=== PATIENT | female | born 1930 | race Caucasian/White ===

== ENCOUNTER 2021-07-01 13:46 | Inpatient (IN) | payer MEDICARE, BC ==
[~2021-07-01] VITALS: Ht 152.4 cm; Wt 50.0 kg
[2021-07-01] VITALS (30 sets, daily range): BP systolic 83–149; BP diastolic 38–90
[2021-07-01 14:24] LABS: HEMATOCRIT 32.1 % (37.0-47.0); IMMATURE GRANULOCYTES 0.8 % (0.0-5.0); MEAN CELL VOLUME 99.4 fL CALC (80.0-100.0); MEAN CORPUSCULAR HGB CONC 31.2 g/dL CAL (32.0-36.0); NEUT# 2.86 thou/uL (2.00-7.15); RED BLOOD COUNT 3.23 mill/uL (4.20-5.60); RED CELL DISTRI WIDTH 13.8 % (11.5-15.5)
[2021-07-01 14:41] LABS: PROTHROMBIN TIME 10.4 SECONDS (9.0-12.5)
[2021-07-01 14:42] LABS: ALBUMIN 3.7 g/dL (3.2-5.0); ALKALINE PHOSPHATASE 40 u/l (38-126); ANION GAP 11 (6-22 (CALC)); BILIRUBIN, TOTAL 0.5 mg/dL (0.0-1.4); BUN 18 mg/dL (8-23); BUN/CREATININE RATIO 16 (12-20 (CALC)); CARBON DIOXIDE 25 mmol/l (22-30); CHLORIDE 105 mmol/l (95-108); CREATININE 1.1 mg/dL (0.5-1.0); GFR 47 ML/MIN (>=60 (CALC)); GFR FOR AFR.AMER. 57 ML/MIN (>=60 (CALC)); POTASSIUM 4.3 mmol/l (3.5-5.1); SGOT/AST 31 u/l (9-36); SODIUM 136 mmol/l (137-146)
[2021-07-01] MEDS ORDERED: MULTI VIT PO (15:29)
[2021-07-01] MEDS ORDERED: ACETAMINOPHEN500 M1 PO (15:31)
[2021-07-01] MEDS ORDERED: LIDOCAINE PATCH 55 % (15:31)
[2021-07-01] MEDS ORDERED: [UNRECOGNIZED DRUG - OTHER] PO (15:32)
[2021-07-01] MEDS ORDERED: CALCIUM PO (15:32)
[2021-07-01] MEDS ORDERED: MELATONIN10 MG PO (15:32)
[2021-07-01] MEDS ORDERED: PREDNISONE5 MG PO (15:33)
[2021-07-01] MEDS ORDERED: VITAMIN D3400 UNI1 PO (15:33)
[2021-07-01] MEDS ORDERED: CITALOPRAM20 M1 PO (15:33)
[2021-07-01] MEDS ORDERED: METHOCARBAMOL500 MG PO (15:34)
[2021-07-01] MEDS ORDERED: FLONASE AL50 MCG/ACT NAB (15:34)
[2021-07-01] MEDS ORDERED: PROTONIX40 M2 PO (15:34)
[2021-07-01] MEDS ORDERED: BUSPIRONE5 MG PO (15:35)
[2021-07-01] MEDS ORDERED: ATENOLOL50 MG PO (15:35)
[2021-07-01] MEDS ORDERED: LORAZEPAM0.5 MG PO (15:36)
[2021-07-01] MEDS ORDERED: PROAIR HFA108 MCG/AC IN (15:36)
[2021-07-01] MEDS ORDERED: PERCOCET 5/325M1 TAB PO (15:36)
[2021-07-01] MEDS ORDERED: RESTASIS0.05 % OU (15:37)
[2021-07-01] MEDS ORDERED: ZOLPIDEM5 M1 PO (15:37)
[2021-07-01] MEDS ORDERED: LYRICA100 MG PO (15:37)
[2021-07-01 16:13] LABS: URINE BILIRUBIN - DIPSTICK NEGATIVE (NEGATIVE); URINE BLOOD DIPSTICK TRACE-INTACT (NEGATIVE); URINE COLOR YELLOW; URINE GLUCOSE - DIPSTICK NEGATIVE (NEGATIVE); URINE KETONE NEGATIVE (NEGATIVE); URINE LEUK ESTERASE NEGATIVE (NEGATIVE); URINE PH 5.5 (4.5-8.0); URINE PROTEIN - DIPSTICK NEGATIVE (NEG-TRACE); URINE SPECIFIC GRAVITY 1.015; URINE UROBILINOGEN - DIPSTICK 0.2 E.U./dL (0.2)
[2021-07-01 16:15] LABS: URINE NITRITE - DIPSTICK NEGATIVE (Negative)
[2021-07-02] VITALS (75 sets, daily range): BP systolic 102–166; BP diastolic 42–102
[2021-07-02] MEDS ORDERED: ATORVASTATIN CA40 MG PO ×2 (13:51→13:53)
[2021-07-02] MEDS ORDERED: ASPIRIN ADULT L81 M2 PO (13:53)
[2021-07-02 23:19] LABS: CHOLESTEROL HDL RATIO 4.3 (<4.4 (CALC))
[2021-07-03] VITALS (55 sets, daily range): BP systolic 92–198; BP diastolic 41–109
[2021-07-03 05:55] LABS: HEMATOCRIT 34.9 % (37.0-47.0); HEMOGLOBIN 10.8 g/dl (12.0-16.0); MEAN CELL VOLUME 99.1 fL CALC (80.0-100.0); MEAN CORPUSCULAR HGB 30.7 pG CALC (26.0-32.0); MEAN CORPUSCULAR HGB CONC 30.9 g/dL CAL (32.0-36.0); RED BLOOD COUNT 3.52 mill/uL (4.20-5.60); RED CELL DISTRI WIDTH 13.3 % (11.5-15.5)
[2021-07-03 06:15] LABS: ANION GAP 15 (6-22 (CALC)); BUN 12 mg/dL (8-23); BUN/CREATININE RATIO 16 (12-20 (CALC)); CARBON DIOXIDE 22 mmol/l (22-30); CHLORIDE 105 mmol/l (95-108); CREATININE 0.7 mg/dL (0.5-1.0); GFR > 60 ML/MIN (>=60 (CALC)); GFR FOR AFR.AMER. > 60 ML/MIN (>=60 (CALC)); MAGNESIUM 1.6 mg/dL (1.6-2.3); POTASSIUM 3.7 mmol/l (3.5-5.1); SODIUM 138 mmol/l (137-146)
[2021-07-03] MEDS ORDERED: PLAVIX75 MG PO (12:36)
== END 2021-07-03 14:20 | disposition home or self-care (01) | DRG 65 ==
LOC: ED 13:46 → ED-I 15:35 → ED 16:12 → ICU 16:13 → ED-I 17:54 → ICU 20:30
PROVIDERS: Family Medicine; Psychiatry & Neurology Neurology; ADMIT Internal Medicine; ATTEND Hospitalist
DX: I63.521 Cerebral infarction due to unspecified occlusion or stenosis of right anterior cerebral artery (principal); G81.94 Hemiplegia, unspecified affecting left nondominant side; I63.511 Cerebral infarction due to unspecified occlusion or stenosis of right middle cerebral artery; R41.0 Disorientation, unspecified; R29.810 Facial weakness; R29.704 NIHSS score 4; I65.21 Occlusion and stenosis of right carotid artery; I10 Essential (primary) hypertension; M54.9 Dorsalgia, unspecified; G89.29 Other chronic pain; R53.1 Weakness; F41.9 Anxiety disorder, unspecified; F32.A Depression, unspecified; Z79.891 Long term (current) use of opiate analgesic; Z86.16 Personal history of COVID-19; Z20.822 Contact with and (suspected) exposure to COVID-19
CPT/HCPCS: Q9967